=== PATIENT | female | born 1970 | race Hispanic/Latino ===

== ENCOUNTER 2016-07-28 14:22 | Emergency (ER) | payer OTHER ==
[~2016-07-28 14:22] MED LIST: FLEXERIL10 MG PO; MOBIC 15MG15 MG PO; VICODIN5-300 PO
[2016-07-28 14:51] LABS: ABSOLUTE BASOPHIL COUNT 0.1 /CUMM (0.0-0.2); ABSOLUTE EOSINOPHIL COUNT 0.8 /CUMM (0.0-0.7); ABSOLUTE GRANULOCYTE CT 6.4 /CUMM (1.4-6.5); ABSOLUTE LYMPH COUNT 1.8 /CUMM (1.2-3.4); ABSOLUTE MONOCYTE COUNT 0.5 /CUMM (0.10-0.60); BASOPHIL % 0.9 % (0.0-2.0); EOSINOPHIL % 8.6 % (0-5); GRANULOCYTE % 66.6 % (42.2-75.2); HEMATOCRIT 41.9 % (37-47); MEAN CORPUSCULAR HGB 30.8 PG (27.0-31.0); MEAN CORPUSCULAR HGB CONC 33.5 G/DL (33.0-37.0); MEAN CORPUSCULAR VOLUME 91.9 FL (81.0-99.0); MEAN PLATELET VOLUME 8.1 FL (7.4-10.4); PLATELET COUNT 279 /CUMM (130-400); RBC DISTRIBUTION WIDTH 12.8 % (11.5-14.5); RED BLOOD CELL CT 4.57 /CUMM (4.20-5.40); WHITE BLOOD CELL COUNT 9.5 /CUMM (4.8-10.8)
--- NOTE | 2016-07-28 14:59 | ED GI/GU/ABDOMINAL COMPLAINT ---
History of Present Illness General Chief Complaint: Abdominal Pain/Flank Pain Stated Complaint: RLQ ABD PAIN Source: patient Exam Limitations: no limitations Vital Signs & Intake/Output Vital Signs & Intake/Output Vital Signs Date Time Temp Pulse Resp B/P B/P Pulse O2 O2 Flow FiO2 Mean Ox Delivery Rate 07/28 1739 97.0 60 18 124/72 97 Room Air 07/28 1425 97.5 83 16 120/76 97 Room Air Allergies Coded Allergies: NO KNOWN ALLERGIES (12/17/11) Reconcile Medications CYCLOBENZAPRINE HCL (Flexeril) 10 MG TABLET 1 TAB PO Q8H PRN spasm/pain Avoid operating motor vehicle or heavy machinery HYDROCODONE/ACETAMINOPHEN (Hydrocodon-Acetaminophen 5-325) 1 EACH TABLET 1 TAB PO TID PRN PAIN Meloxicam (Mobic 15MG) 7.5 MG TABLET 1 TAB PO DAILY PRN PAIN/INFLAMMATION Oxycodone HCl/Acetaminophen (Percocet 5-325 MG Tablet) 5 MG-325 MG TABLET 1 TAB PO BID PRN PAIN Triage Note: PT TO ED [facility]IB [facility]ARE. PT HAS RLQ PAIN SINCE LAST NIGHT. PAIN WORSE WITH MOVEMENT. AFEBRILE AT THIS TIME. -N/V/D. Triage Nurses Notes Reviewed? yes ? N Is pt currently ? No Onset: Gradual Duration: getting worse Timing: recent history Severity Numbers: 7 Location: right lower quadrant Radiation: back Activities at Onset: none HPI: Patient is a 46-year-old female who presents emergency room in which she states that yesterday she had a gradual onset of right lower quadrant abdominal pain or symptoms have worsened today patient has so she is symptoms of dysuria hematuria and back pain. Patient was evaluated by urgent care facility and was advised to presents emergency room for evaluation of appendicitis. Patient denies any fever chills vaginal bleeding discharge shortness of breath or cough or nausea vomiting. Last bowel movement was within last 24 hours no blood no melena noted. Patient hasn't taken any medications for symptoms. Patient is able tolerate by mouth (RON MONACO) Past History Travel History Traveled to [place] past 21 day No Medical History Any Pertinent Medical History? none Surgical History Surgical History: none Psychosocial History What is your primary language Indonesian Tobacco Use: Never used Family History Hx Contributory? No (RON MONACO) Review of Systems Review of Systems Constitutional: Reports: no symptoms. EENTM: Reports: no symptoms. Respiratory: Reports: no symptoms. Cardiovascular: Reports: no symptoms. GI: Reports: see HPI, abdominal pain. Genitourinary: Reports: see HPI. Musculoskeletal: Reports: see HPI. Skin: Reports: no symptoms. Neurological/Psychological: Reports: no symptoms. Hematologic/Endocrine: Reports: no symptoms. Immunologic/Allergic: Reports: no symptoms. All Other Systems: Reviewed and Negative (RON MONACO) Physical Exam Physical Exam General Appearance: no apparent distress, alert, comfortable Gastrointestinal: normal bowel sounds, soft Comments: HEENT: Normal EENT exam, Neck: Supple, no lymphadenopathy, normal range of motion without pain or tenderness Back: Nontender, no CVA tenderness. Cardiovascular: Regular rate and rhythms no murmurs rubs or gallops, normal JVP Respiratory: Chest nontender. No respiratory distress.breath sounds clear to auscultation bilaterally Extremity: No edema, no calf tenderness to palpation, normal and equal pulses. Neuro: Alert oriented x3, motor sensory normal, Skin: No appreciable rash on exposed skin, skin is warm and dry. Psych: Mood and affect is normal, memory and judgment is normal. Core Measures ACS in differential dx? No Severe Sepsis Present: No Septic Shock Present: No (RON MONACO) Progress Differential Diagnosis: AAA, AMI, appendicitis, biliary colic, bowel obstruction , colon cancer, cholecystitis, diverticulitis, ectopic , endometritis, esophageal varices, gastritis, hepatitis, hernia, hemorrhoids, ischemic bowel, inflamm bowel dis, intrauterine , kidney stone, Analia-Elda tear, ovarian cyst, ovarian torsion, pancreatitis, PID/cervicitis, peptic ulcer, PUD/ GERD, perforated viscous, SBO, threatened AB, UTI/pyelo Plan of Care: Orders Procedure Date/time Status URINALYSIS 07/28 1512 Complete HUMAN BETA HCG SCREEN 07/28 1425 Complete COMPREHENSIVE METABOLIC PANEL 07/28 1425 Complete CBC WITHOUT DIFFERENTIAL 07/28 1425 Complete Laboratory Tests 07/28/16 1550: Urine Color YEL, Urine Clarity HAZY H, Urine pH 7.0, Ur Specific [place] 1.020, Urine Protein NEG, Urine Ketones NEG, Urine Nitrite NEG, Urine Bilirubin NEG, Urine Urobilinogen 0.2, Ur Leukocyte Esterase NEG, Ur Microscopic SEDIMENT EXAMINED, Urine RBC RARE, Urine WBC RARE, Ur Epithelial Cells MOD H, Urine Bacteria RARE H, Urine Mucus FEW, Urine Hemoglobin TRACE-INTACT, Urine Glucose NEG 07/28/16 1433: Anion Gap 12, Estimated GFR > 60, BUN/Creatinine Ratio 16.0, Glucose 86, Calcium 9.3, Total Bilirubin 0.4, AST 24, ALT 34, Alkaline Phosphatase 88, Total Protein 7.8, Albumin 4.5, Globulin 3.3, Albumin/Globulin Ratio 1.4, Total Beta HCG NEGATIVE, CBC w Diff NO MAN DIFF REQ, RBC 4.57, MCV 91.9, MCH 30.8, RDW 12.8, MPV 8.1, Gran % 66.6, Lymphocytes % 18.9 L, Monocytes % 5.0, Eosinophils % 8.6 H, Basophils % 0.9, Absolute Granulocytes 6.4, Absolute Lymphocytes 1.8, Absolute Monocytes 0.5, Absolute Eosinophils 0.8, Absolute Basophils 0.1, PUBS MCHC 33.5 Patient currently is resting at bedside no apparent distress however has concerns of right lower quadrant pain in which CT scan will be evaluated for appendicitis 07/28/2016 4:27:44 PM patient currently is in no apparent distress and had complete resolution of pain with above medications. CT scan was resulted showing no concerns of appendicitis however there were concerns of a right ovarian cyst. Discussed results with patient why start advised patient to follow up with [facility]. Upon discharge patient looks well upper distress and will comply with discharge instructions and had no questions (CECILIO CARBAJAL,RON) Diagnostic Imaging: Viewed by Me: CT Scan. Radiology Impression: SEE COMMENTS Initial ED EKG: none Comments: PATIENT: LACY TOBIAS PRESENT AGE: 46 PATIENT ACCOUNT NO: [id number] : 70 LOCATION: [facility] ORDERING PHYSICIAN: RON CARBAJAL SERVICE DATE: 07/28/16 EXAM TYPE: CAT - CT ABD & PELVIS W IV CONTRAST EXAMINATION: CT ABDOMEN AND PELVIS WITH CONTRAST CLINICAL INFORMATION: Right lower quadrant abdominal pain. COMPARISON: None TECHNIQUE: Multidetector volumetric imaging was performed of the abdomen and pelvis before and after the IV administration of 94 mL of Optiray 320 intravenous contrast. Sagittal and coronal reformatted images were obtained on the technologist's workstation. DLP: 271.99 mGy-cm. FINDINGS: LUNG BASES: A 2 mm calcified granuloma is noted in the left lung base anteriorly in the lower lobe. The lung bases are otherwise clear. LIVER, GALLBLADDER, AND BILIARY TREE: The liver is normal in size, shape, and attenuation. No focal hepatic lesion or biliary ductal dilatation is present. The gallbladder is unremarkable with no evidence of radiopaque gallstones, gallbladder wall thickening, or obvious pericholecystic inflammatory changes. PANCREAS: Unremarkable. SPLEEN: Unremarkable. ADRENAL GLANDS: Unremarkable. KIDNEYS AND URETERS: The kidneys are normal in size, shape, and attenuation. No hydronephrosis, hydroureter, or calculi seen. No perinephric stranding. BLADDER: Unremarkable. GASTROINTESTINAL TRACT: The small and large bowel are unremarkable. The appendix is unremarkable. The stomach is partially distended however unremarkable. PERITONEAL CAVITY: There is no evidence of free intraperitoneal air or fluid. No inflammatory changes or nodularity seen in the omentum and mesentery. ABDOMINAL WALL: No significant hernia is appreciated. LYMPH NODES: No adenopathy. VASCULAR: Unremarkable. PELVIC VISCERA: The uterus is unremarkable. The right ovary is prominent in size compared to left ovary. The right ovary measures 1.9 x 3.3 x 2.0 cm. There is a 1.7 cm peripherally enhancing hypodense lesion in the right ovary most likely representing a functional cyst. The left ovary measures 1.0 x 0.9 x 1.3 cm. OSSEOUS STRUCTURES: No acute or suspicious osseous abnormality. Sclerosis is noted along the anterior aspect of the right sacroiliac joints, greater on the iliac side compared to sacral side. IMPRESSION: 1. Normal appendix. 2. Asymmetrical prominence of the right ovary containing 1.7 cm hypodense likely cystic lesion. Consider ultrasound correlation. 3. No acute abnormality. 4. Sclerosis along the right sacroiliac joint may represent degenerative changes or changes of asymmetrical sacroiliitis. DICTATED BY: DAVID FUENTES,LEOPOLDO DATE/TIME DICTATED:07/28/161617 MUTUAL FUND MANAGER:JEREMI (RON MONACO) Departure Departure Disposition: HOME OR SELF CARE Condition: Stable Clinical Impression Primary Impression: Right ovarian cyst Referrals: PHU ESPINOZA MD (PCP/Family) Additional Instructions: As discussed continue [id number] ibuprofen as directed begin the prescription of Percocet for breakthrough pain relief. Follow-up tomorrow with her established [facility] DR. MALDONADO for further evaluation treatment. If symptoms worsen return to emergency room Departure Forms: Customer Survey General Discharge Information Prescriptions: Current Visit Scripts Oxycodone HCl/Acetaminophen (Percocet 5-325 MG Tablet) 1 TAB PO BID PRN PAIN #8 TAB (RON MONACO) PA/MARKETING AREA MANAGER Co-Sign Statement Statement: ED Attending supervision documentation- [] I saw and evaluated the patient. I have also reviewed all the pertinent lab results and diagnostic results. I agree with the findings and the plan of care as documented in the PA's/MARKETING AREA MANAGER's documentation. [X] I have reviewed the ED Record and agree with the PA's/MARKETING AREA MANAGER's documentation. [] Additions or exceptions (if any) to the PAs/MARKETING AREA MANAGER's note and plan are summarized below: [] (NINO FUENTES,LOIS Shields)
--- NOTE | 2016-07-28 16:57 | CT SCAN REPORT ---
EXAMINATION: CT ABDOMEN AND PELVIS WITH CONTRAST CLINICAL INFORMATION: Right lower quadrant abdominal pain. COMPARISON: None TECHNIQUE: Multidetector volumetric imaging was performed of the abdomen and pelvis before and after the IV administration of 94 mL of Optiray 320 intravenous contrast. Sagittal and coronal reformatted images were obtained on the technologist's workstation. DLP: 271.99 mGy-cm. FINDINGS: LUNG BASES: A 2 mm calcified granuloma is noted in the left lung base anteriorly in the lower lobe. The lung bases are otherwise clear. LIVER, GALLBLADDER, AND BILIARY TREE: The liver is normal in size, shape, and attenuation. No focal hepatic lesion or biliary ductal dilatation is present. The gallbladder is unremarkable with no evidence of radiopaque gallstones, gallbladder wall thickening, or obvious pericholecystic inflammatory changes. PANCREAS: Unremarkable. SPLEEN: Unremarkable. ADRENAL GLANDS: Unremarkable. KIDNEYS AND URETERS: The kidneys are normal in size, shape, and attenuation. No hydronephrosis, hydroureter, or calculi seen. No perinephric stranding. BLADDER: Unremarkable. GASTROINTESTINAL TRACT: The small and large bowel are unremarkable. The appendix is unremarkable. The stomach is partially distended however unremarkable. PERITONEAL CAVITY: There is no evidence of free intraperitoneal air or fluid. No inflammatory changes or nodularity seen in the omentum and mesentery. ABDOMINAL WALL: No significant hernia is appreciated. LYMPH NODES: No adenopathy. VASCULAR: Unremarkable. PELVIC VISCERA: The uterus is unremarkable. The right ovary is prominent in size compared to left ovary. The right ovary measures 1.9 x 3.3 x 2.0 cm. There is a 1.7 cm peripherally enhancing hypodense lesion in the right ovary most likely representing a functional cyst. The left ovary measures 1.0 x 0.9 x 1.3 cm. OSSEOUS STRUCTURES: No acute or suspicious osseous abnormality. Sclerosis is noted along the anterior aspect of the right sacroiliac joints, greater on the iliac side compared to sacral side. IMPRESSION: 1. Normal appendix. 2. Asymmetrical prominence of the right ovary containing 1.7 cm hypodense likely cystic lesion. Consider ultrasound correlation. 3. No acute abnormality. 4. Sclerosis along the right sacroiliac joint may represent degenerative changes or changes of asymmetrical sacroiliitis.
[2016-07-28] MEDS ORDERED: PERCOCET 5-3251 EACH PO (17:09)
[2016-07-28 17:39] VITALS: BP 124/72
== END 2016-07-28 17:40 ==
LOC: ERH 14:22
PROVIDERS: Emergency Medicine
DX: N83.201 Unspecified ovarian cyst, right side (principal)
CPT/HCPCS: 74177; 81001; 96374

== ENCOUNTER → 2016-08-08 | Day surgery (SDC) | payer OTHER ==
[~2016-08-08] MED LIST changes: +PERCOCET 5-3251 EACH PO
--- NOTE | 2016-08-08 13:32 | Operative Report ---
Operative/Inv Procedure Report Surgery Date: 08/08/16 Name of Procedure: Laparoscopy lysis of adhesions aspiration of cul-de-sac fluid and peritoneal washings Pre-Operative Diagnosis: Pelvic pain Post-Operative Diagnosis: Adhesions from the ovary to the appendix adhesions from the cul-de-sac to the uterus consistent with endometriosis Estimated Blood Loss: less than 50ml Surgeon/Control Engineer: JOEL FUENTES,AMERICA Treadwell Anesthesia: general endotracheal tube Operative/Procedure Note Note: Procedure note patient was taken the operating room placed supine position after adequate induction general anesthesia via endotracheal tube patient placed in dorsolithotomy position the vagina from dorsal fashion bladder catheterized sterilely examination under anesthesia performed rai speculum was placed into the vagina CO2 tenaculum was placed on the Intralipid cervix gentle downward traction allowed the King to be placed into the cervix this point surgeon regowned and gloved the abdomen was prepped and draped so fashion at the level of the umbilicus stab incision was made to allow for the entry of Veress needle the abdomen was insufflated approximately 4 L of CO2 to liver edge dullness which point the Veress needle was removed a 10 mm trocar was inserted the umbilicus sheath remained placed through that sheath laparoscope placed under direct visualization a 2 mm 5 mm port was placed 2 finger breadths of symptoms pubis in midline through an old Pfannenstiel skin incision through that port antibiotic peanut was placed originally to lyse adhesions and any blunt port was placed to remove the presumed cyst fluid that was noted in the abdomen from a probably ruptured cyst pictures were taken maximal CO2 was removed from the abdomen peritoneal washings were removed from the abdomen patient tolerated this well to specimens were sent to pathology once was removed and direct visualization the fascia was reapproximated 0 the skin was reapproximated both incisions with interrupteds of 30 Marcaine was injected underneath skin at the end the case on the bacitracin was applied both incisions and sterile bandages at the end the case patient was awakened from anesthesia all the King cannula was moved from from the vagina Moreau was removed patient was returned spine position awakened from anesthesia and transferred recovery room awake alert with counts correct
== END ==
LOC: STS 01:52
DX: N73.6 Female pelvic peritoneal adhesions (postinfective) (principal); R10.2 Pelvic and perineal pain
CPT/HCPCS: 88305; J0131; J0694; J2250